=== PATIENT | male | born 1985 | race Caucasian/White ===

== ENCOUNTER → 2017-08-12 | Outpatient (CLI) | payer OTHER ==
[~2017-08-12] VITALS: Ht 182.9 cm; Wt 158.8 kg
[~2017-08-12] MED LIST: AMOX1TAB12 PO; LEVSIN/SL0.125 MG SL; ZANTAC150 MG PO
== END | disposition home or self-care (01) ==
LOC: PPHC 09:23
DX: J06.9 Acute upper respiratory infection, unspecified (principal)